=== PATIENT | female | born 1965 | race African-American/Black ===

== ENCOUNTER 2016-08-27 11:20 | Emergency (ER) | payer SELFPAY | END 2016-08-27 12:23 | disposition home or self-care (01) | LOC: NAV ERS 11:20 | DX: J06.9 Acute upper respiratory infection, unspecified (principal); I10 Essential (primary) hypertension; J45.909 Unspecified asthma, uncomplicated; F32.9 Major depressive disorder, single episode, unspecified; Z79.899 Other long term (current) drug therapy | CPT/HCPCS: 99283 ==

== ENCOUNTER 2018-10-28 20:20 | Emergency (ER) | payer SELFPAY ==
[2018-10-28] MEDS ORDERED: Ondansetron ODT 4 MG TAB ONE (20:46)
[2018-10-28] MEDS ORDERED: Acetaminophen 500 MG TAB ONE (20:46)
--- NOTE | 2018-10-28 20:54 | RAD ---
EXAM: Chest 2 views: HISTORY: Headache and cough COMPARISON: 04/07/2010 FINDINGS: There is a normal-sized cardiomediastinal silhouette. There is no evidence of consolidation, mass, or pleural effusion. The bones are unremarkable. IMPRESSION: No evidence of acute cardiopulmonary disease
[2018-10-28] MEDS ORDERED: Dexamethasone 20 MG/5 ML VIAL ONE (21:11)
[2018-10-28] MEDS ORDERED: Ibuprofen 800 MG TAB ONE (21:11)
== END 2018-10-28 21:30 | disposition home or self-care (01) ==
LOC: NAV ERS 20:20
DX: J20.9 Acute bronchitis, unspecified (principal); I10 Essential (primary) hypertension; G43.909 Migraine, unspecified, not intractable, without status migrainosus; J45.909 Unspecified asthma, uncomplicated; F32.9 Major depressive disorder, single episode, unspecified; Z79.51 Long term (current) use of inhaled steroids
CPT/HCPCS: 71046; 87804; 96372; J1100; Q0162

== ENCOUNTER 2020-10-30 18:20 | Emergency (ER) | payer OTHER, SELFPAY ==
[2020-10-30] MEDS ORDERED: Rabies Vaccine Human 2.5 UNITS VIAL ONE (19:58)
== END 2020-10-30 20:04 | disposition home or self-care (01) ==
LOC: NAV ERS 18:20
DX: S82.142A Displaced bicondylar fracture of left tibia, initial encounter for closed fracture (principal); I10 Essential (primary) hypertension; Z79.899 Other long term (current) drug therapy; W01.0XXA Fall on same level from slipping, tripping and stumbling without subsequent striking against object, initial encounter
CPT/HCPCS: 27532; 90376; 90675

== ENCOUNTER 2021-09-27 11:52 | Emergency (ER) | payer SELFPAY ==
[2021-09-27] MEDS ORDERED: Bicillin LA 1.2 MILLION UNITS/2 ML SYRINGE ONE (12:38)
== END 2021-09-27 12:55 | disposition home or self-care (01) ==
LOC: NAV ERS 11:52
DX: J02.9 Acute pharyngitis, unspecified (principal); I10 Essential (primary) hypertension; Z79.899 Other long term (current) drug therapy
CPT/HCPCS: 96372; 99283; J0561

== ENCOUNTER 2022-07-16 17:17 | Emergency (ER) | payer SELFPAY ==
[2022-07-16] MEDS ORDERED: Fluconazole 100 MG TAB ONE (17:57)
[2022-07-16] MEDS ORDERED: Ketorolac Tromethamine 60 MG/2 ML VIAL ONE (17:57)
== END 2022-07-16 18:15 | disposition home or self-care (01) ==
LOC: NAV ERS 17:17
DX: S29.011A Strain of muscle and tendon of front wall of thorax, initial encounter (principal); B37.31 Acute candidiasis of vulva and vagina; M17.11 Unilateral primary osteoarthritis, right knee; X58.XXXA Exposure to other specified factors, initial encounter
CPT/HCPCS: 93005; 96372; J1885

== ENCOUNTER 2023-05-04 11:05 | Emergency (ER) | payer SELFPAY ==
[2023-05-04] MEDS ORDERED: Ipratropium/Albuterol 3 ML NEB ONE (11:53)
== END 2023-05-04 13:38 | disposition home or self-care (01) ==
LOC: NAV ERS 11:05
DX: J10.1 Influenza due to other identified influenza virus with other respiratory manifestations (principal); J45.901 Unspecified asthma with (acute) exacerbation; I10 Essential (primary) hypertension
CPT/HCPCS: 71046; 94640; J7620